=== PATIENT | female | born 1980 | race Caucasian/White ===

== ENCOUNTER 2019-01-07 16:40 | Emergency (ER) | payer SELFPAY ==
[~2019-01-07] VITALS: Ht 170.2 cm; Wt 68.2 kg
[2019-01-07] MEDS ORDERED: LORA1TAB3 PO (16:59)
[2019-01-07 18:19] LABS: BASOPHILS % (AUTO) 0.3 % (0.0-2.0); EOSINOPHILS % (AUTO) 0.6 % (1.0-6.0); HEMATOCRIT 37.2 % (36-46); HEMOGLOBIN 12.1 g/dL (12.0-16.0); LYMPHOCYTES # (AUTO) 0.8 K/uL (1.0-4.8); LYMPHOCYTES % (AUTO) 8.8 % (22.0-44.0); MEAN CORPUSCULAR HEMOGLOBIN 28.4 pg (26.0-34.0); MEAN CORPUSCULAR HGB CONC 32.6 G/dL (31.0-37.0); MEAN CORPUSCULAR VOLUME 87 fL (80-100); MONOCYTES # (AUTO) 0.5 K/uL (0.1-1.0); MONOCYTES % (AUTO) 5.2 % (2.0-9.0); NEUTROPHILS # (AUTO) 7.7 K/uL (1.8-7.7); NEUTROPHILS % (AUTO) 85.1 % (40.0-70.0); PLATELET COUNT (AUTO) 297 K/uL (150-450); RED BLOOD CELL COUNT(AUTO) 4.27 MIL/uL (4.00-5.20); RED CELL DISTRIBUTION WIDTH 15.2 % (11.5-14.5)
[2019-01-07 18:35] LABS: ANION GAP 12 mmol/L (8-16); CALCIUM, TOTAL 9.4 mg/dL (8.8-10.5); CARBON DIOXIDE 25 mmol/L (22-29); CHLORIDE 104 mmol/L (98-107); CREATININE 0.76 mg/dL (0.60-1.30); GLOMERULAR FILTR. RATE CALC > 60 mL/min (>60); GLUCOSE,RANDOM 90 mg/dL (70-110); POTASSIUM 3.6 mmol/L (3.5-5.1); SODIUM SERUM 141 mmol/L (136-145); UREA NITROGEN, BLOOD 13 mg/dL (7-18)
[2019-01-07 18:50] LABS: ALANINE AMINOTRANSFERASE 26 U/L (12-78); ALBUMIN 4.1 g/dL (3.4-5.0); ALKALINE PHOSPHATASE 56 U/L (46-116); ASPARTATE AMINOTRANSFERASE 21 U/L (15-37); BILIRUBIN,TOTAL 0.6 mg/dL (0.1-1.0); FREE T4 (FREE THYROXINE) 1.02 ng/dL (0.76-1.46); THYROID STIMULATING HORMONE 2.68 uIU/mL (0.36-3.74); TOTAL PROTEIN, SERUM 7.5 g/dL (6.4-8.2)
[2019-01-07 18:55] LABS: PLATELET MORPHOLOGY COMMENT LARGE PLTS PRESENT
[2019-01-07 19:54] VITALS: BP 110/77
[2019-01-07] MEDS ORDERED: DEXAMETHASONE SOD PHOS 4 MG/ML 5 ML VIAL IM ONE (20:00)
== END 2019-01-07 20:29 | disposition home or self-care (01) ==
LOC: EMS 16:42
DX: G35 Multiple sclerosis (principal); R13.10 Dysphagia, unspecified; G47.00 Insomnia, unspecified; F12.90 Cannabis use, unspecified, uncomplicated; Z98.51 Tubal ligation status; Z88.8 Allergy status to other drugs, medicaments and biological substances
CPT/HCPCS: 36415; 70490; 80053; 84439; 84443; 85025; 93005; 96372; 99284; J1100

== ENCOUNTER 2023-04-27 20:54 | Emergency (ER) | payer MEDICAID ==
[~2023-04-27] VITALS: Ht 175.3 cm; Wt 63.6 kg
[~2023-04-27 20:54] MED LIST: LORA-1000 PO
[2023-04-27 22:41] VITALS: TEMP 97.7
[2023-04-27 22:49] VITALS: BP 156/98; PULSE 94; RESP 20
[2023-04-27] MEDS ORDERED: LORazepam 1 MG TABLET PO ONE (23:00)
[2023-04-27] MEDS ORDERED: OXcarbazepine 300 MG TABLET PO ONE (23:00)
[2023-04-27 23:11] LABS: BASOPHILS % (AUTO) 0.5 % (0.0-2.0); EOSINOPHILS % (AUTO) 0.3 % (1.0-6.0); HEMATOCRIT 37.7 % (36-46); HEMOGLOBIN 12.4 g/dL (12.0-16.0); LYMPHOCYTES # (AUTO) 0.7 K/uL (1.0-4.8); LYMPHOCYTES % (AUTO) 5.2 % (22.0-44.0); MEAN CORPUSCULAR HEMOGLOBIN 28.5 pg (26.0-34.0); MEAN CORPUSCULAR HGB CONC 32.8 G/dL (31.0-37.0); MEAN CORPUSCULAR VOLUME 87 fL (80-100); MONOCYTES # (AUTO) 0.8 K/uL (0.1-1.0); MONOCYTES % (AUTO) 6.7 % (2.0-9.0); PLATELET COUNT (AUTO) 438 K/uL (150-450); RED BLOOD CELL COUNT(AUTO) 4.34 MIL/uL (4.00-5.20); RED CELL DISTRIBUTION WIDTH 16.2 % (11.5-14.5); WHITE BLOOD COUNT (AUTO) 12.6 K/uL (4.5-11.0)
[2023-04-27 23:14] LABS: NEUTROPHILS % (AUTO) 87.3 % (40.0-70.0)
[2023-04-27 23:22] LABS: ANION GAP 9 mmol/L (8-16); CALCIUM, TOTAL 9.6 mg/dL (8.8-10.5); CARBON DIOXIDE 27 mmol/L (22-29); CHLORIDE 102 mmol/L (98-107); GLOMERULAR FILTR. RATE CALC > 60 mL/min (>60); GLUCOSE,RANDOM 104 mg/dL (70-110); POTASSIUM 3.8 mmol/L (3.5-5.1); SODIUM SERUM 138 mmol/L (136-145); UREA NITROGEN, BLOOD 16 mg/dL (7-18)
[2023-04-27 23:28] LABS: ALANINE AMINOTRANSFERASE 33 U/L (12-78); ALBUMIN 4.1 g/dL (3.4-5.0); ALKALINE PHOSPHATASE 82 U/L (46-116); ASPARTATE AMINOTRANSFERASE 22 U/L (15-37); BILIRUBIN,TOTAL 0.5 mg/dL (0.1-1.0); TOTAL PROTEIN, SERUM 7.8 g/dL (6.4-8.2)
== END 2023-04-27 23:51 | disposition home or self-care (01) ==
LOC: EMS 20:54
DX: G40.909 Epilepsy, unspecified, not intractable, without status epilepticus (principal); F12.90 Cannabis use, unspecified, uncomplicated; Z98.51 Tubal ligation status; Z98.890 Other specified postprocedural states; Z88.8 Allergy status to other drugs, medicaments and biological substances; Z91.148 Patient's other noncompliance with medication regimen for other reason
CPT/HCPCS: 80053; 85025; 99283

== ENCOUNTER 2025-02-27 00:12 | Emergency (ER) | payer SELFPAY ==
[~2025-02-27] VITALS: Ht 165.1 cm; Wt 65.9 kg
[~2025-02-27 00:12] MED LIST changes: +ADDE10 PO; +CHOL500045 PO; +HYDR25TA83 PO; +IBUP600 PO; -LORA-1000 PO; +LORA1TAB25 PO; +OXCA300T28 PO; +OXYC15TA2 PO; +PROC5TAB54 PO; +PROP80TA4 PO; +TIZA-211 PO
[2025-02-27 00:16] VITALS: TEMP 98.1
[2025-02-27 02:49] LABS: PLATELET COUNT (AUTO) 279 K/uL (150-450); RED BLOOD CELL COUNT(AUTO) 4.22 MIL/uL (4.00-5.20); RED CELL DISTRIBUTION WIDTH 15.8 % (11.5-14.5); WHITE BLOOD COUNT (AUTO) 7.2 K/uL (4.5-11.0)
[2025-02-27 02:50] LABS: CALCIUM, TOTAL 8.6 mg/dL (8.8-10.5); CREATININE 0.92 mg/dL (0.60-1.30); GLOMERULAR FILTR. RATE CALC > 60 mL/min (>60); GLUCOSE,RANDOM 103 mg/dL (70-110); SODIUM SERUM 148 mmol/L (136-145); UREA NITROGEN, BLOOD 17 mg/dL (7-18)
[2025-02-27 03:03] LABS: APPEARANCE,URINE CLEAR (CLEAR); GLUCOSE, URINE (UA) NEGATIVE (NEGATIVE); LEUKOCYTE ESTERASE ,URINE NEGATIVE (NEGATIVE); NITRATE,URINE POSITIVE (NEGATIVE); OCCULT BLOOD,URINE NEGATIVE (NEGATIVE); PH,URINE DRUG SCREEN 5.5 (5.0-8.0); SPECIFIC GRAVITIY, URINE 1.007 (1.003-1.030)
[2025-02-27 03:10] LABS: AMPHET/METH SCREEN,URINE NEGATIVE (NEGATIVE); BARBITURATE SCREEN, URINE NEGATIVE (NEGATIVE); CANNABINOID SCREEN,URINE POSITIVE (NEGATIVE); COCAINE SCREEN,URINE NEGATIVE (NEGATIVE); METHADONE SCREEN, URINE NEGATIVE (NEGATIVE)
[2025-02-27 03:11] LABS: ALCOHOL, URINE DRUG SCREEN POSITIVE (NEGATIVE)
[2025-02-27 03:30] LABS: SQUAMOUS EPITHELIAL CELL,UR Few /LPF (None Seen)
[2025-02-27] MEDS: ONDANSETRON 4 MG TABLET PO ONE (07:14)
[2025-02-27 08:47] VITALS: BP 127/80; PULSE 78; RESP 15; O2SAT 95
== END 2025-02-27 09:29 | disposition home or self-care (01) ==
LOC: EMS 00:21
DX: F10.129 Alcohol abuse with intoxication, unspecified (principal); F12.90 Cannabis use, unspecified, uncomplicated; Z79.899 Other long term (current) drug therapy; Z98.890 Other specified postprocedural states; Z98.51 Tubal ligation status; Z88.8 Allergy status to other drugs, medicaments and biological substances; Y90.8 Blood alcohol level of 240 mg/100 ml or more
CPT/HCPCS: 99284; 80048; 81001; 84703; 85025; 87077; 87086; 36415; 72040; 80307; G0480; Q0162; 87186